=== PATIENT | female | born 1955 | race Caucasian/White ===

== ENCOUNTER 2016-11-30 17:51 | Emergency (ER) | payer MEDICARE ==
[~2016-11-30] VITALS: Ht 147.3 cm; Wt 60.0 kg
[~2016-11-30 17:51] MED LIST: ALPR-475 PO; ESOM20CA PO; LISI-170 PO; MOME13HF INH; OXYC-229 PO; OXYC-302 PO; TIOT18CA INH
[2016-11-30] MEDS ORDERED: SODIUM CHLORIDE 0.9% 1,000 ML IV ONE (18:12)
[2016-11-30] MEDS ORDERED: methylPREDNISolone SOD SUCC 125 MG/2 ML ONE (18:15)
[2016-11-30] MEDS ORDERED: ALBUTEROL/IPRATROPIUM 2.5MG/0.5MG, 3 ML ONE (18:28)
[2016-11-30] MEDS ORDERED: LORazepam 2 MG/ML, 1ML IVPush ONE (18:30)
[2016-11-30] MEDS ORDERED: methylPREDNISolone SOD SUCC 125 MG/2 ML IVP ONE (18:30)
[2016-11-30] MEDS ORDERED: ALBUTEROL/IPRATROPIUM 2.5MG/0.5MG, 3 ML NPPB ONE (18:30)
[2016-11-30 18:46] VITALS: BP 130/43
[2016-11-30 18:58] LABS: BLOOD UREA NITROGEN 27 mg/dL (7-18)
[2016-11-30 19:52] LABS: RAPID INFLUENZA A Negative (Negative); RAPID INFLUENZA B Negative (Negative)
== END 2016-11-30 20:36 | disposition home or self-care (01) ==
LOC: ED 20:30
DX: J44.1 Chronic obstructive pulmonary disease with (acute) exacerbation (principal); I10 Essential (primary) hypertension; Z90.710 Acquired absence of both cervix and uterus; Z87.891 Personal history of nicotine dependence
CPT/HCPCS: 36415; 70360; 71010; 80048; 82040; 83605; 85025; 87400; 93005; 94640; 96361; 96374; 99285; J2930; J7030; J7620

== ENCOUNTER → 2017-01-09 | Outpatient (CLI) | payer MEDICARE | END | disposition home or self-care (01) | LOC: RAD 07:22 | PROVIDERS: ATTEND Internal Medicine Critical Care Medicine | DX: J38.3 Other diseases of vocal cords (principal) | CPT/HCPCS: 74220 ==

== ENCOUNTER → 2017-01-09 | Outpatient (CLI) | payer MEDICARE | END | disposition home or self-care (01) | LOC: CLISVCS 07:30 | PROVIDERS: ATTEND Internal Medicine Critical Care Medicine | DX: R13.10 Dysphagia, unspecified (principal); R49.0 Dysphonia ==

== ENCOUNTER → 2018-03-27 | Outpatient (CLI) | payer MEDICARE ==
[~2018-03-27] MED LIST changes: +OMNIPAQUE 350 MG/ML, 150 ML BOTTLE ONE; -OXYC-229 PO; +OXYC-307 PO
== END | disposition home or self-care (01) ==
LOC: CFH 11:41
PROVIDERS: ATTEND Specialist
DX: D72.829 Elevated white blood cell count, unspecified (principal); L95.8 Other vasculitis limited to the skin; Z87.891 Personal history of nicotine dependence
CPT/HCPCS: 70491; 71260; 74177; Q9967

== ENCOUNTER 2021-04-06 08:21 | Inpatient (IN) | payer MEDICARE ==
[2021-04-05 09:15] LABS: BASOPHILS % (AUTO) 1 % (0-1); EOSINOPHILS % (AUTO) 4 % (1-7); LYMPHOCYTES % (AUTO) 29 % (22-44); MEAN CORPUSCULAR HEMOGLOBIN 24.1 pg (27.0-34.8); MEAN CORPUSCULAR HGB CONC 32.2 g/dL (32.4-35.8); MEAN PLATELET VOLUME 7.2 fL (7.4-10.4); MONOCYTES % (AUTO) 4 % (2-9); NEUTROPHILS % (AUTO) 61 % (42-75); PLATELET COUNT 240 x10^3/uL (130-400); RED BLOOD COUNT 5.35 x10^6/uL (3.82-5.3); RED CELL DISTRIBUTION WIDTH 15.7 % (9.6-15.2)
[2021-04-05 09:28] LABS: ALBUMIN 3.8 g/dL (3.4-5.0); ANION GAP 7 mmol/L (5-15); CHLORIDE 104 mmol/L (98-107)
[2021-04-05 09:31] LABS: ALANINE AMINOTRANSFERASE 76 U/L (12-78); ALKALINE PHOSPHATASE 126 U/L (45-117); BILIRUBIN,TOTAL 0.5 mg/dL (0.2-1.0); CREATININE 0.64 mg/dL (0.55-1.02); TOTAL PROTEIN 8.1 g/dL (6.4-8.2)
[~2021-04-06] VITALS: Ht 147.3 cm; Wt 79.0 kg
[~2021-04-06 08:21] MED LIST changes: -ALPR-475 PO; +ALPR0.5T7 PO; +AMLO2.5T2 PO; +ASPI81TA45 PO; +B CO1TAB14 PO; +BUPIVACAINE/PF 0.5% ONE; +CLOB15CR19 TP; +CLOB50FO8 TP; +EPINEPHRINE 1 MG/ML, 1ML ONE; +FERR-46 PO; +FLUT1AER INH; +FOLI1TAB32 PO; +HEPARIN 1,000 UNITS/ML, 10ML ONE; +LEVA15HF4 INH; +LISI40TA9 PO; -OMNIPAQUE 350 MG/ML, 150 ML BOTTLE ONE; -OXYC-302 PO; -OXYC-307 PO; +OXYC-501 PO; +OXYC1TAB12 PO; +PANT40TA3 PO; +PITA2TAB2 PO; +PROTAMINE SULFATE 10 MG/ML, 5ML ONE; +TRIA10.8 NS
[2021-04-06] MEDS ORDERED: EZET10TA70 PO (08:59)
[2021-04-06] MEDS ORDERED: LACTATED RINGERS 1,000 ML IV SCH (09:00)
[2021-04-06] MEDS ORDERED: CHLORHEXIDINE 15 ML UDC PO ONE (09:00)
[2021-04-06] MEDS ORDERED: MIDAZOLAM 1 MG/ML, 2ML ONE (09:53)
[2021-04-06] MEDS ORDERED: FENTANYL PF 250 MCG/5ML ONE (09:53)
[2021-04-06] MEDS ORDERED: HYDROmorphone 1 MG/ML, 1ML INJ IVPush PRN (10:00)
[2021-04-06] MEDS ORDERED: DIPHENHYDRAMINE 50 MG/ML, 1ML IVPush PRN (10:00)
[2021-04-06] MEDS ORDERED: PROMETHAZINE 25 MG/ML, 1ML IVPush PRN (10:00)
[2021-04-06] MEDS ORDERED: LABETALOL 5MG/ML, 20ML IV PRN (10:00)
[2021-04-06] MEDS ORDERED: hydrALAzine 20 MG/ML, 1ML IV PRN (10:00)
[2021-04-06] MEDS ORDERED: FENTANYL PF 100 MCG/2ML IV PRN (10:00)
[2021-04-06] MEDS ORDERED: OXYcodone 5 MG/5 ML ORAL.SOL UDC PO PRN (10:00)
[2021-04-06] MEDS ORDERED: MEPERIDINE/PF 25MG/0.5ML IVPush PRN (10:00)
[2021-04-06] MEDS ORDERED: HALOPERIDOL 5 MG/ML IV PRN (10:00)
[2021-04-06] MEDS ORDERED: BUPIVACAINE/PF-EPI 0.5% 1:200K INFIL ONE (11:00)
[2021-04-06] MEDS ORDERED: HEPARIN 1,000 UNITS/ML, 10ML IV ONE (11:00)
[2021-04-06] MEDS ORDERED: SUCCINYLCHOLINE 20 MG/ML, 10ML ONE (11:58)
[2021-04-06] MEDS ORDERED: CEFAZOLIN 1,000 MG ONE (11:58)
[2021-04-06] MEDS ORDERED: ROCURONIUM 10MG/ML,5ML ONE (11:58)
[2021-04-06] MEDS ORDERED: NEOSTIGMINE 1 MG/ML, 10ML ONE (11:58)
[2021-04-06] MEDS ORDERED: DEXAMETHASONE 4 MG/ML, 1ML ONE (11:58)
[2021-04-06] MEDS ORDERED: GLYCOPYRROLATE 0.2MG/1ML, 5ML ONE (11:58)
[2021-04-06] MEDS ORDERED: PROPOFOL 10 MG/ML, 20ML ONE (11:58)
[2021-04-06] MEDS ORDERED: ONDANSETRON 2MG/ML, 2ML ONE (11:58)
[2021-04-06] MEDS ORDERED: AMLODIPINE 2.5 MG TABLET PO PRN (12:30)
[2021-04-06] MEDS ORDERED: LABETALOL 5MG/ML 40ML VIAL IVPush PRN (12:30)
[2021-04-06] MEDS ORDERED: HYDROcodone/APAP 5/325 TABLET PO PRN (12:30)
[2021-04-06] MEDS: FLUTICASONE NASAL SPRAY 16GM NAS SCH (18:00)
[2021-04-06 20:03] VITALS: BP 93/42
[2021-04-06] MEDS: CEFAZOLIN PMX 1GM/50ML 50 ML IVPB SCH (20:50)
[2021-04-06] MEDS: ACETAMINOPHEN 325 MG TABLET PO PRN (20:55)
[2021-04-06] MEDS: LACTATED RINGERS 1,000 ML IV SCH (20:56)
[2021-04-06] MEDS ORDERED: ATORVASTATIN 10 MG TABLET PO SCH (21:00)
[2021-04-07 00:08] VITALS: BP 95/52
[2021-04-07 04:13] VITALS: BP 100/57
[2021-04-07] MEDS: CEFAZOLIN PMX 1GM/50ML 50 ML IVPB SCH (04:24)
[2021-04-07] MEDS ORDERED: PANTOPRAZOLE 40MG TABLET PO SCH (06:00)
[2021-04-07] MEDS ORDERED: ENOXAPARIN 40 MG/0.4 ML SQ SCH (08:00)
[2021-04-07] MEDS ORDERED: ASPIRIN 81 MG TABLET EC PO SCH (08:00)
[2021-04-07 08:30] VITALS: BP 128/68
[2021-04-07] MEDS: ACETAMINOPHEN 325 MG TABLET PO PRN (08:34)
[2021-04-07] MEDS: FLUTICASONE NASAL SPRAY 16GM NAS SCH (09:00)
[2021-04-07] MEDS ORDERED: EZETIMIBE 10 MG TABLET PO SCH (09:00)
[2021-04-07] MEDS ORDERED: FERROUS SULFATE 325 MG TABLET PO SCH (09:00)
[2021-04-07] MEDS ORDERED: LISINOPRIL 40 MG TABLET PO SCH (09:00)
[2021-04-07] MEDS ORDERED: FLUTICASONE/VILANTEROL 100-25MCG/INH INH SCH (09:00)
[2021-04-07] MEDS ORDERED: FOLIC ACID 1 MG TABLET PO SCH (09:00)
[2021-04-07] MEDS ORDERED: MULTIVITS,STRESS FORMULA 1 TABLET PO SCH (09:00)
[2021-04-07] MEDS: LACTATED RINGERS 1,000 ML IV SCH (09:20)
[2021-04-07] MEDS ORDERED: HYDR-2214 PO (09:27)
[2021-04-07 11:38] VITALS: BP 123/64
[2021-04-13] MEDS ORDERED: DOXY100T PO (06:48)
[2021-04-13] MEDS ORDERED: CEFD300C37 PO (06:48)
[2021-04-13] MEDS ORDERED: FURO-93 PO (11:28)
[2021-04-13] MEDS ORDERED: POTA10TA PO (11:28)
== END 2021-04-07 12:02 | disposition home or self-care (01) | DRG 39 ==
LOC: OUT 08:21 → ORIP 12:16 → 4NE 15:56
PROVIDERS: ADMIT Surgery; ATTEND Surgery
PROC: 03CM0ZZ Extirpation of Matter from Right External Carotid Artery, Open Approach (ICD-10-PCS; 2021-04-06)
PROC: 03UH0JZ Supplement Right Common Carotid Artery with Synthetic Substitute, Open Approach (ICD-10-PCS; 2021-04-06)
PROC: 03UM0JZ Supplement Right External Carotid Artery with Synthetic Substitute, Open Approach (ICD-10-PCS; 2021-04-06)
PROC: 03CH0ZZ Extirpation of Matter from Right Common Carotid Artery, Open Approach (ICD-10-PCS; principal; 2021-04-06 10:00)
DX: I65.21 Occlusion and stenosis of right carotid artery (principal); I95.9 Hypotension, unspecified
CPT/HCPCS: 36415; 71046; 80053; 85025; 86850; 86900; 93005; G0378; J0171; J0690; J1100; J1644; J2250; J2405; J2704; J2710; J2720; J3010; U0005; C1781; J0330; J7120; U0003